=== PATIENT | female | born 1955 | race Caucasian/White ===

== ENCOUNTER 2016-05-28 08:52 | Emergency (ER) | payer MEDICARE, MEDICAID ==
[~2016-05-28] VITALS: Ht 152.4 cm; Wt 65.4 kg
[~2016-05-28 08:52] MED LIST: AMLO5TAB22 PO; OMEP20TA39 PO; SUCR1S PO; ZOCO40TA PO; ZOFR4TAB3 SL
[2016-05-28 09:17] VITALS: BP 152/93; PULSE 82; RESP 16; TEMP 98.2; O2SAT 98
[2016-05-28] MEDS ORDERED: OMEP20TA PO (09:46)
[2016-05-28] MEDS ORDERED: AMLO5TAB2 PO (09:46)
--- NOTE | 2016-05-28 09:57 | PD ---
HPI Chief Complaint: Cold / Flu Symptoms Time Seen by Provider: 09:47 Travel History International Travel<30 days: No Contact w/Intl Traveler<30days: No Traveled to known affect area: No History of Present Illness HPI Patient is a 60-year-old female comes in complaining of sore throat for several weeks. She says for 2 months she has had a cough, nasal congestion and sore throat. She says she saw her primary doctor told her to take Mucinex. She says this is not helping. She has not had any fever or chills. She says in the past 3 weeks her sore throat has been getting worse. She says she feels like it is difficult to swallow. She is not drooling or had any swelling in her mouth. She says she has been gargling salt water for relief. PFSH Past Medical History Cancer: Yes (BREAST) Cardiovascular Problems: Yes (htn on meds) High Cholesterol: Yes Chemotherapy: Yes Diminished Hearing: No GERD: Yes Hypertension: Yes Immunizations Current: No Tetanus Vaccination: Never Vaccinated ?: Not Menopausal: Yes Past Surgical History Appendectomy: Yes Gynecologic Surgery: Yes (BREAST LUMPECTOMY) Hysterectomy: Yes Tonsillectomy: Yes Social History Alcohol Use: No Tobacco Use: No Substance Use: No Allergies-Medications (Allergen,Severity, Reaction): Coded Allergies: Ceftin (Verified Allergy, Severe, HIVES, 05/28/16) Codeine (Verified Allergy, Severe, HIVES, 05/28/16) Penicillin (Verified Allergy, Severe, HIVES, 05/28/16) Tetanus Toxoid (Verified Adverse Reaction, Intermediate, SLEEPS FOR 3 DAYS , 05/28/16) Reported Meds & Prescriptions Reported Meds & Active Scripts Active Reported Omeprazole 20 Mg Tab 20 Mg PO DAILY Amlodipine (Amlodipine Besylate) 5 Mg Tab 5 Mg PO DAILY Review of Systems General / Constitutional: No: Fever, Chills Eyes: Positive: Tearing HENT: Positive: Sore Throat, Congestion, No: Headaches Cardiovascular: No: Chest Pain or Discomfort Respiratory: No: Shortness of Breath Gastrointestinal: No: Nausea, Vomiting Skin: No Rash, No Change in Pigmentation Neurologic: No: Weakness, Dizziness Physical Exam Narrative GENERAL: Awake and alert, in no acute distress. SKIN: Warm and dry. HEAD: Atraumatic. Normocephalic. EYES: Pupils equal and round. No scleral icterus. ENT: Mucous membranes pink and moist. No pharyngeal erythema, no enlarged tonsils or exudates. Uvula is midline. Bilateral TMs with good light reflex, no erythema, no perforation. NECK: Trachea midline. No JVD. CARDIOVASCULAR: Regular rate and rhythm. No murmur appreciated. RESPIRATORY: No accessory muscle use. Clear to auscultation. Breath sounds equal bilaterally. NEUROLOGICAL: Awake and alert. No obvious cranial nerve deficits. Motor grossly within normal limits. Normal speech. PSYCHIATRIC: Appropriate mood and affect; insight and judgment normal. Data Data Last Documented VS Vital Signs Date Time Temp Pulse Resp B/P Pulse Ox O2 Delivery O2 Flow Rate FiO2 05/28/16 09:17 98.2 82 16 152/93 98 MDM Medical Decision Making Medical Screen Exam Complete: Yes Emergency Medical Condition: Yes Medical Record Reviewed: Yes Differential Diagnosis Hay fever versus pharyngitis versus strep throat Narrative Course Patient is a 60-year-old female comes in complaining of sore throat. Exam shows no abnormalities. Patient advised she likely has a sore throat due to postnasal drip. Advised to take [id number] allergy medications. Advised to use throat lozenges as needed for symptomatic relief. Advised follow-up with her primary doctor. Advised to return to the ED as needed for any worsening symptoms. Diagnosis Primary Impression: Allergic rhinitis Qualified Code: J30.2 - Seasonal allergic rhinitis, unspecified allergic rhinitis trigger Referrals: Rafael Sandhu MD call for appointment Patient Instructions: Allergic Rhinitis (ED), General Instructions, Pharyngitis (ED) Additional Instructions: Your symptoms are consistent with allergic rhinitis. Your exam does not suggest you need antibiotics currently. Try taking over the counter allergy medications for symptomatic relief, either Claritin, Zyrtec, or Alfreda. Follow up with your primary doctor or ENT as needed. Return to the ED as needed for any worsening symptoms. Disposition: 01 DISCHARGE HOME Condition: Stable Svetlana Gore MD May 28, 2016 09:57
== END 2016-05-28 10:29 | disposition home or self-care (01) ==
LOC: PHEFT 08:52
DX: J30.2 Other seasonal allergic rhinitis (principal)
CPT/HCPCS: 99283